=== PATIENT | female | born 2000 | race Hispanic/Latino ===

== ENCOUNTER 2024-07-20 10:35 | Emergency (ER) | payer MEDICAID ==
[~2024-07-20] VITALS: Ht 152.4 cm; Wt 71.2 kg
--- NOTE | 2024-07-20 10:42 | ERN ---
ED Note History of Present Illness Stated Complaint: PELVICA CRAMPING Chief Complaint: Pelvic Pain Time Seen by MD: 10:37 Dictation: PATIENT IS A 23-YEAR-OLD FEMALE COMING IN TODAY WHO IS APPROXIMATELY SIX WEEKS BY HISTORY. SHE IS COMPLAINING OF CRAMPING AND SPOTTING ONSET YESTERDAY. SHE HAS HAD NO CARE, HER DOCTOR WE WILL BE DR. OLMOS OUT OF [place]. , SHE STATES SHE IS TAKING VITAMINS. HER APPOINTMENT WITH HER DOCTOR IS EARLY JULY. Allergies: Coded Allergies: No Known Allergies (Unverified Allergy, Unknown, 07/20/24) Past Medical History PSYCH History: no pertinent psych hx : 1 Para: 0 RN Note Reviewed/Agreed w/PFSH: Yes Review of System Dictation CONSTITUTIONAL: NEGATIVE EXCEPT FOR HPI HEAD/FACE: NEGATIVE EXCEPT FOR HPI EENT: NEGATIVE EXCEPT FOR HPI RESPIRATORY: NEGATIVE EXCEPT FOR HPI GASTROINTESTINAL/ABDOMINAL: NEGATIVE EXCEPT FOR HPI GENITOURINARY: NEGATIVE EXCEPT FOR HPI VAGINAL SPOTTING MUSCULOSKELETAL: NEGATIVE EXCEPT FOR HPI INTEGUMENTARY: NEGATIVE EXCEPT FOR HPI NEUROLOGICAL/PSYCH: NEGATIVE EXCEPT FOR HPI HEMATOLOGIC/LYMPHATIC: NEGATIVE EXCEPT FOR HPI ALL SYSTEMS NEGATIVE, EXCEPT NOTED ABOVE. 13 POINT REVIEW OF SYSTEMS ASSESSED AND ALL NEGATIVE EXCEPT FOR ABOVE. Initial Vital Sign VS Vital Signs Date Time Temp Pulse Resp B/P (MAP) Pulse Ox O2 Delivery O2 Flow Rate FiO2 07/20/24 10:37 98.8 84 20 118/76 Room Air Physical Exam Dictation VITAL SIGNS REVIEWED GENERAL APPEARANCE: ALERT, ORIENTED X 3, MILD ACUTE DISTRESS, WELL DEVELOPED, NOURISHED. HEAD AND FACE: NON-TRAUMATIC. EYES: PERRL, PINK CONJUNCTIVAS, EYELID NO TRAUMA, ANTERIOR CHAMBER WITH ARCUS SENILIS. EARS: PINNAS INTACT AND NO SIGNS OF TRAUMA OR ERYTHEMA EAR CANALS CLEAR AND NO DISCHARGE TM NO ERYTHEMA NOSE: NO DISCHARGE, NO BLEEDING. OROPHARYNX: MOUTH NORMAL, TONGUE PINK, PHARYNX CLEAR,NO ERYTHEMA, TONSILS NO EXUDATES, NO ABSCESSES NOTED, MUCOUS MEMBRANE MOIST NECK: SUPPLE, NON-TENDER, NO THYROMEGALY, NO MASSES, NO JVD, NO BRUITS BREAST:DEFERRED CHEST:NO TENDERNESS, NO CREPITUS, NO PARADOXICAL MOVEMENT, NO RETRACTIONS LUNGS:CLEAR, WELL-VENTILATED, SYMMETRIC, NO RALES, NO WHEEZING, NO RHONCHI, NO STRIDOR, GOOD BREATH SOUNDS BILATERALLY HEART: REGULAR RATE, REGULAR RHYTHM, NO MURMUR, NO GALLOPS VASCULAR: NO PERIPHERAL EDEMA, ABDOMEN: SOFT, POSITIVE BOWEL SOUNDS, NONDISTENDED, NO GUARDING, NONTENDER, NO REBOUND, NO MASSES NO HEPATOMEGALY, NO SPLENOMEGALY, NO PATEL'S SIGN, NO HERNIAS. RECTAL: DEFERRED GENITAL: DEFERRED NEUROLOGICAL: NORMAL SPEECH, MOTOR FUNCTION INTACT, SENSORY FUNCTION INTACT MUSCULOSKELETAL: NECK NONTENDER, FULL RANGE OF MOTION, BACK NONTENDER, FULL RANGE OF MOTION, EXTREMITIES: NONTENDER, FULL RANGE OF MOTION SKIN: COLOR PINK, DRY, NO TURGOR, NO RASH, NO LACERATIONS, NO ABRASIONS, NO CONT USIONS. LYMPHATIC: DEFERRED Results (Laboratory/Radiology) Laboratory/Radiology Laboratory Tests Test 07/20/24 10:50 07/20/24 10:58 White Blood Count 6.5 K/uL (4.8-10.8) Red Blood Count 4.27 MIL/uL (4.00-5.50) Hemoglobin 12.8 g/dL (12.0-16.0) Hematocrit 37.4 % (36-48) Mean Corpuscular Volume 87.6 fL (79-99) Mean Corpuscular Hemoglobin 30.0 pg (27.0-33.0) Mean Corpuscular Hemoglobin Concent 34.2 g/dL (32.0-36.0) Red Cell Distribution Width 12.1 % (11.0-15.5) Platelet Count 236 K/uL (130-400) Mean Platelet Volume 10.4 fL (7.5-10.5) Immature Granulocyte % (Auto) 0.3 % (0-1) Neutrophils (%) (Auto) 65.6 % (40.0-77.0) Lymphocytes (%) (Auto) 25.5 % (21.0-51.0) Monocytes (%) (Auto) 6.0 % (3.0-13.0) Eosinophils (%) (Auto) 2.1 % (0.0-8.0) Basophils (%) (Auto) 0.5 % (0.0-5.0) Neutrophils # (Auto) 4.3 K/uL (1.8-7.7) Lymphocytes # (Auto) 1.7 K/uL (1.0-4.8) Monocytes # (Auto) 0.4 K/uL (0.1-1.0) Eosinophils # (Auto) 0.14 K/uL (0.00-0.70) Basophils # (Auto) 0.03 K/uL (0.00-0.20) Absolute Immature Granulocyte (auto 0.00 K/uL (0-1) Nucleated Red Blood Cells 0.0 % (0.0-0.19) Sodium Level 136 mmol/L (136-145) Potassium Level 3.8 mmol/L (3.5-5.1) Chloride Level 101 mmol/L (101-111) Carbon Dioxide Level 28 mmol/L (21-32) Blood Urea Nitrogen 8 mg/dL (7-18) Creatinine 0.6 mg/dL (0.5-1.0) Glomerular Filtration Rate Calc 130 mL/min (>90) Random Glucose 118 mg/dL (70-105) H Total Calcium 9.2 mg/dL (8.5-10.1) Human Chorionic Gonadotropin, Quant 94225 mIU/mL (0-5) H Urine Color LIGHT-YELLOW (YELLOW) Urine Appearance CLEAR (CLEAR) Urine pH 6.5 (5.0-8.0) Urine Specific [place] 1.018 (1.001-1.031) Urine Protein NEGATIVE mg/dL (NEGATIVE) Urine Glucose (UA) NEGATIVE mg/dL (NEGATIVE) Urine Ketones NEGATIVE mg/dL (NEGATIVE) Urine Occult Blood +- (TRACE) (NEGATIVE) H Urine Nitrate NEGATIVE (NEGATIVE) Urine Bilirubin NEGATIVE mg/dL (NEGATIVE) Urine Urobilinogen 0.2 mg/dL (0.2-1.0) Urine Leukocyte Esterase NEGATIVE Miguel/uL Urine RBC 0-1 /HPF (0-1) Urine WBC 2-5 /HPF (0-1) H Urine Squamous Epithelial Cells RARE /HPF (0-2) Urine Bacteria None /HPF (None Seen) HISTORY: Vaginal spotting COMPARISON: None TECHNIQUE: Obstetrical ultrasound study was performed. FINDINGS: The uterus measures 9.8 x 5.4 x 5.6 centimeter. Right ovary measures 3 x 2.1 x 2.6 centimeter. Left ovary is not well visualized. Flow is seen in the right ovary. There is single intrauterine gestation with estimated gestational age of 7 weeks. heart rate is 129 beats per minute. No fluid is seen in the cul-de-sac. IMPRESSION: 1. There is single intrauterine gestation with estimated gestational age of 7 weeks. heart rate is 129 beats per minute. Labs Reviewed?: Yes ED Course ED Course Orders Procedure Category Date Status Time Cbc With Differential LAB 07/20/24 Complete 10:39 Hcg,Quantitative LAB 07/20/24 Complete 10:39 Us Ob <14 Weeks US 07/20/24 Resulted 10:39 Type And Screen BBK 07/20/24 In Process 10:39 Basic Metabolic Panel LAB 07/20/24 Complete 10:39 Urinalysis Profile LAB 07/20/24 Complete 10:39 *Nursing CPOE 07/20/24 Transmitted Communication: 10:39 Acetaminophen 500mg PHA 07/20/24 Complete Tab (Tylenol 500mg T 11:00 Current Medications Medications (Trade) Dose Ordered Sig/Yasmine Route PRN Reason Start Time Stop Time Status Last Admin Dose Admin Acetaminophen (TYLenol 500MG TAB) 1,000 mg ONCE ONCE PO 07/20/24 11:00 07/20/24 11:01 DC 07/20/24 10:56 Vital Signs Date Time Temp Pulse Resp B/P (MAP) Pulse Ox O2 Delivery O2 Flow Rate FiO2 07/20/24 10:37 98.8 84 20 118/76 Room Air Medical Decision Making MDM MEDICAL DISCHARGE MAKING BASED ON ULTRASOUND AND LABS FOR VAGINAL BLEEDING. ULTRASOUND DEMONSTRATES VIABLE INTRAUTERINE SEVEN WEEKS WITH A HEART RATE 129 PATIENT WAS MADE AWARE SPECULUM EXAM NEGATIVE PATIENT GIVEN INSTRUCTIONS TO TAKE TYLENOL ONLY FOR PAIN AND PELVIC REST UNTIL CLEARED BY HER LEAD SHIPPER DOCTOR Procedure Procedure Dictation: [id number], , PROCEDURE EXPLAINED TO PATIENT AND SHE AGREED TO PROCEED KIMBERLY ARENAS IN ROOM WITH THE EXAM. PATIENT PATIENT IN LITHOTOMY POSITION EXTERNAL EXAM IS NEGATIVE INTERNAL EXAM OS IS CLOSED WITH NO BLOOD IN THE VAULT, NO TISSUE NO LESIONS NO CMT TENDERNESS PATIENT TOLERATED WELL DX & DISP Disposition: Discharge Departure Impression: Primary Impression: Vaginal bleeding before 22 weeks gestation Condition: Stable Additional Instructions: FOLLOW-UP WITH PRIMARY CARE PROVIDER IN 1 TO 2 DAYS. TAKE MEDICATIONS DIRECTED HERE IN THE EMERGENCY ROOM. OKAY TO CONTINUE HOME MEDICATIONS UNLESS OTHERWISE DISCUSSED DURING YOUR VISIT IN THE EMERGENCY ROOM TODAY. RETURN TO YOUR NEAREST EMERGENCY ROOM IF SYMPTOMS WORSEN OR IF THERE IS NO IMPROVEMENT. CALL 911 IF YOU NEED IMMEDIATE ASSISTANCE. TAKE [id number] NEEDED AND IF NO CONTRAINDICATIONS ARE PRESENT. INCREASE ORAL HYDRATION. A WOUND CULTURE OR URINE CULTURE WAS ORDERED HERE IN THE EMERGENCY ROOM DEPARTMENT PLEASE FOLLOW-UP WITH PRIMARY CARE PROVIDER AND ADVISE THEM TO GET REPEAT PORTS FROM OUR FACILITY. IF YOU HAD ANY OUMAR WRAP/SPLINTS THAT WERE APPLIED HERE, PLEASE DO NOT REMOVE THEM UNTIL YOU SEE YOUR PRIMARY CARE OR SPECIALTY. PELVIC REST AND NO SEX OF ANY KIND UNTIL CLEARED BY YOUR LEAD SHIPPER DOCTOR. NO ALCOHOL NO TOBACCO NO [id number] MEDICATIONS EXCEPT FOR TYLENOL UNTIL CLEARED BY YOUR DOCTOR CONTINUE VITAMIN Referrals: TRINITY ZAMARRIPA (PCP) Time of Disposition: 12:21 I have reviewed the case, and I agree with, Diagnosis and Plan DENA GAO NP Jul 20, 2024 10:42
[2024-07-20] MEDS: acetaMINOPHEN 500 MG TABLET PO ONE (10:56)
--- NOTE | 2024-07-20 11:00 | NUR ---
ALMITA REQUEST: PT WAS PROVIDED A LITER OF WATER PLUS HAD A BOTTLE OF WATER W/HER SO THAT SHE MAY FILL HER BLADDER IN PREPARATION FOR HER SONO
[2024-07-20 11:28] LABS: APPEARANCE,URINE CLEAR (CLEAR); BILIRUBIN,URINE NEGATIVE (NEGATIVE); COLOR,URINE LIGHT-YELLOW (YELLOW); GLUCOSE, URINE (UA) NEGATIVE (NEGATIVE); KETONES,URINE NEGATIVE (NEGATIVE); LEUKOCYTE ESTERASE ,URINE NEGATIVE Leu/uL (NEGATIVE); NITRATE,URINE NEGATIVE (NEGATIVE); PH,URINE 6.5 (5.0-8.0); PROTEIN,URINE NEGATIVE (NEGATIVE); UROBILINOGEN,URINE 0.2 mg/dL (0.2-1.0)
[2024-07-20 11:29] LABS: ADD UA MICROSCOPIC YES
[2024-07-20 11:45] LABS: MUCUS,URINE RARE LPF (None Seen); RBC,URINE 0-1 /HPF (0-1); SQUAMOUS EPITHELIAL CELL,UR RARE /HPF (0-2)
[2024-07-20 11:54] LABS: HEMATOCRIT 37.4 % (36-48); MEAN CORPUSCULAR HGB CONC 34.2 g/dL (32.0-36.0); MEAN CORPUSCULAR VOLUME 87.6 fL (79-99); NEUTROPHILS % (AUTO) 65.6 % (40.0-77.0); PLATELET COUNT (AUTO) 236 K/uL (130-400); RED BLOOD CELL COUNT(AUTO) 4.27 MIL/uL (4.00-5.50); RED CELL DISTRIBUTION WIDTH 12.1 % (11.0-15.5); WHITE BLOOD COUNT (AUTO) 6.5 K/uL (4.8-10.8)
[2024-07-20 11:55] LABS: BASOPHILS # (AUTO) 0.03 K/uL (0.00-0.20); BASOPHILS % (AUTO) 0.5 % (0.0-5.0); EOSINOPHILS # (AUTO) 0.14 K/uL (0.00-0.70); EOSINOPHILS % (AUTO) 2.1 % (0.0-8.0); LYMPHOCYTES # (AUTO) 1.7 K/uL (1.0-4.8); LYMPHOCYTES % (AUTO) 25.5 % (21.0-51.0); MONOCYTES # (AUTO) 0.4 K/uL (0.1-1.0); NEUTROPHILS # (AUTO) 4.3 K/uL (1.8-7.7)
[2024-07-20 12:00] LABS: CREATININE 0.6 mg/dL (0.5-1.0); POTASSIUM 3.8 mmol/L (3.5-5.1)
--- NOTE | 2024-07-20 12:01 | HMCIMG ---
US OB <14 WEEKS HISTORY: Vaginal spotting COMPARISON: None TECHNIQUE: Obstetrical ultrasound study was performed. FINDINGS: The uterus measures 9.8 x 5.4 x 5.6 centimeter. Right ovary measures 3 x 2.1 x 2.6 centimeter. Left ovary is not well visualized. Flow is seen in the right ovary. There is single intrauterine gestation with estimated gestational age of 7 weeks. heart rate is 129 beats per minute. No fluid is seen in the cul-de-sac. IMPRESSION: 1. There is single intrauterine gestation with estimated gestational age of 7 weeks. heart rate is 129 beats per minute.
[2024-07-20 12:21] VITALS: BP 115/76; PULSE 80; RESP 18; TEMP 98.7; O2SAT 99
== END 2024-07-20 12:32 | disposition home or self-care (01) ==
LOC: EDH 10:35
DX: O20.9 Hemorrhage in early pregnancy, unspecified (principal); O26.891 Other specified pregnancy related conditions, first trimester; R10.2 Pelvic and perineal pain; Z3A.01 Less than 8 weeks gestation of pregnancy
CPT/HCPCS: 36415; 76801; 80048; 81001; 84702; 85025; 86850; 86900; 86901; 99284

== ENCOUNTER 2024-09-23 05:14 | Emergency (ER) | payer MEDICAID ==
[~2024-09-23] VITALS: Ht 152.4 cm; Wt 72.1 kg
[2024-09-23 05:15] VITALS: BP 129/84; PULSE 112; RESP 20; TEMP 99.8
--- NOTE | 2024-09-23 05:16 | NUR ---
COVID AND FLU, STREP SWABS COLLECTED AND SENT
[2024-09-23 05:33] LABS: RAPID GROUP A STREP negative (NEGATIVE)
[2024-09-23 05:40] LABS: SARS-CoV-2, RNA, NAAT NEGATIVE SARS CoV-2 (NEGATIVE)
[2024-09-23 05:43] LABS: INFLUENZA TYPE A Negative For Type A (NEGATIVE); INFLUENZA TYPE B Negative For Type B (NEGATIVE)
[2024-09-23] MEDS ORDERED: AMOX500C2 PO (05:55)
[2024-09-23] MEDS ORDERED: FLUT16H NS (05:55)
--- NOTE | 2024-09-23 05:56 | ERN ---
General Chief Complaint: Sore Throat Stated Complaint: SORE THROAT, NASAL CONGESTION Time Seen by MD: 05:31 Source: patient History of Present Illness Initial Comments This is a 24-year-old female coming in to be evaluated for one day of cough and sore throat. The patient states that she has been having nasal congestion as well. She does not know if she has had a fever she says she has had chills. Allergies: Coded Allergies: No Known Allergies (Unverified Allergy, Unknown, 07/20/24) Past Medical History Past Medical History: No Pertinent History Past Surgical History: None Female( History) : 1 Para: 0 Aborts: 0 ROS Dictation CONSTITUTIONAL: chills, no fever, no weakness, no diaphoresis, no malaise. HEAD/FACE: No signs of trauma. EENT: No eye pain, no blurred vision, no tearing, no double vision, no ear pain, no ear discharge, no nose pain, nasal congestion, throat pain, no throat swelling, no mouth pain. RESPIRATORY: No cough, no orthopnea, no SOB, no stridor, no wheezing. CARDIOVASCULAR: No chest pain, no edema, no palpitations, no syncope. GASTROINTESTINAL/ABDOMINAL: No abdominal pain, no constipation, no diarrhea, no nausea, no vomiting. GENITOURINARY: No abnormal discharge, no dysuria, no frequent urination, no hematuria. No complaints of pain in the genitals. MUSCULOSKELETAL: No back pain, no gout, no joint pain, no joint swelling, no muscle pain, no muscle stiffness, no neck pain. INTEGUMENTARY: No change in color, no change in hair/nails, no dryness, no lesion, no lumps, no rash. NEUROLOGICAL/PSYCH: No anxiety, not depressed, no emotional problem, no headache, no numbness, no pre-existing deficit, no history of seizures, no tremors, no weakness. HEMATOLOGIC/LYMPHATIC: Not anemic, no history of blood clots, no apparent bleeding, no bruising, glands not swollen. All Systems Negative, Except as Noted. Physical Exam Physical Exam Dictation VITAL SIGNS: Reviewed. GENERAL APPEARANCE: Alert, oriented x3, no acute distress, obese. HEAD AND FACE: Non-traumatic. EYES: PERRL, pink conjunctivas, eyelid no trauma, anterior chamber clear. EARS: Pinnas intact and no signs of trauma or erythema. Ear canals clear and no discharge. TMs erythema. NOSE: No discharge, no bleeding. OROPHARYNX: Mouth normal, teeth no caries, tongue pink. Pharynx erythema. Tonsils no exudates, no abscesses noted. Mucous membrane moist. NECK: Supple, non-tender, no thyromegaly, no masses, no JVD, no bruits. BREAST: Deferred. CHEST: No tenderness, no crepitus, no paradoxical movement, no retractions. LUNGS: Clear, well-ventilated, symmetric, no rales, no wheezing, no rhonchi, no stridor, good breath sounds bilaterally. HEART: Regular rate, regular rhythm, no murmur, no gallops. VASCULAR: No peripheral edema. ABDOMEN: Soft, positive bowel sounds, nondistended, no guarding, nontender, no rebound, no masses no hepatomegaly, no splenomegaly, no Cabrales's sign, no hernias. RECTAL: Deferred. GENITAL: Deferred. NEUROLOGICAL: Normal speech, gross motor function intact, gross sensory function intact. MUSCULOSKELETAL: Neck nontender, full range of motion, back nontender, full range of motion. EXTREMITIES: Nontender, full range of motion. SKIN: Color pink, dry, no turgor, no rash, no lacerations, no abrasions, no contusions. LYMPHATICS: Deferred. Results Laboratory and Microbiology Lab and Micro Result Laboratory Tests Test 09/23/24 05:16 Influenza Type A Antigen Negative For Type A Influenza Type B Antigen Negative For Type B SARS-CoV-2, RNA, NAAT NEGATIVE SARS CoV-2 Group A Streptococcus Rapid negative (NEGATIVE) Labs Reviewed?: Yes MDM MDM: Differential diagnosis: URI, sinusitis, strep pharyngitis Patient is a 24-year-old female coming in to be evaluated for URI symptoms. URI symptoms include sore throat nasal congestion. On physical exam oropharyngeal erythema is present swabs are all negative for COVID flu and strep. Based on the physical findings patient will be discharged with a diagnosis of strep pharyngitis antibiotics will be provided. ED Course Orders Procedure Category Date Status Time Covid Rna Naat LAB 09/23/24 Complete 05:16 Influenza Type A & B, LAB 09/23/24 Complete Rapid 05:16 Rapid (Group A Strep) LAB 09/23/24 Complete 05:16 Vital Signs Date Time Temp Pulse Resp B/P (MAP) Pulse Ox O2 Delivery O2 Flow Rate FiO2 09/23/24 05:15 99.9 112 20 129/84 99 Room Air DX & DISP Disposition: Discharge Departure Impression: Primary Impression: Strep pharyngitis Condition: Stable Scripts Fluticasone Propionate (Flonase Nasal [place]) 50 Mcg/Actuation [place] 2 SPRAY NS DAILY, #16 GM 0 Refills Prov: SAVANNAH FITCH MD 09/23/24 Amoxicillin (Amoxicillin) 500 Mg Capsule 1 CAP PO TID for 7 Days, #21 CAP 0 Refills Prov: SAVANNAH FITCH MD 09/23/24 Additional Instructions: FOLLOW-UP WITH PRIMARY CARE PROVIDER IN 1 TO 2 DAYS. TAKE MEDICATIONS DIRECTED HERE IN THE EMERGENCY ROOM. OKAY TO CONTINUE HOME MEDICATIONS UNLESS OTHERWISE DISCUSSED DURING YOUR VISIT IN THE EMERGENCY ROOM TODAY. RETURN TO YOUR NEAREST EMERGENCY ROOM IF SYMPTOMS WORSEN OR IF THERE IS NO IMPROVEMENT. CALL 911 IF YOU NEED IMMEDIATE ASSISTANCE. TAKE TYLENOL [id number] NEEDED AND IF NO CONTRAINDICATIONS ARE PRESENT. INCREASE ORAL HYDRATION. A WOUND CULTURE OR URINE CULTURE WAS ORDERED HERE IN THE EMERGENCY ROOM DEPARTMENT PLEASE FOLLOW-UP WITH PRIMARY CARE PROVIDER AND ADVISE THEM TO GET REPEAT PORTS FROM OUR FACILITY. IF YOU HAD ANY OUMAR WRAP/SPLINTS THAT WERE APPLIED HERE, PLEASE DO NOT REMOVE THEM UNTIL YOU SEE YOUR PRIMARY CARE OR SPECIALTY. Referrals: Referrals: ALONDRA CURTIS (PCP) Time of Disposition: 05:54 SAVANNAH FITCH MD Sep 23, 2024 05:56
== END 2024-09-23 06:13 | disposition home or self-care (01) ==
LOC: EDH 05:14
DX: J02.0 Streptococcal pharyngitis (principal); Z20.822 Contact with and (suspected) exposure to COVID-19
CPT/HCPCS: 87635; 87804; 87880; 99284

== ENCOUNTER 2024-09-23 20:55 | Emergency (ER) | payer MEDICAID ==
[~2024-09-23] VITALS: Ht 152.4 cm; Wt 72.1 kg
[~2024-09-23 20:55] MED LIST: AMOX500C2 PO; FLUT16H NS
[2024-09-23 20:57] VITALS: BP 119/73; PULSE 127; RESP 20; TEMP 99.3
--- NOTE | 2024-09-23 21:38 | ERN ---
General Chief Complaint: Fever Stated Complaint: FEVER Time Seen by MD: 20:59 Source: patient History of Present Illness Initial Comments Patient is a 23-year-old female seen earlier today due to URI symptoms. Patient was diagnosed with strep pharyngitis. Patient was 16 weeks and states she was wanting to make sure that the medication was appropriate to take while she is . Patient was prescribed amoxicillin in his on Tylenol for fever control. No abdominal pain or other symptoms. Allergies: Coded Allergies: No Known Allergies (Unverified Allergy, Unknown, 07/20/24) Home Meds Active Scripts Fluticasone Propionate (Flonase Nasal [place]) 50 Mcg/Actuation [place], 2 SPRAY NS DAILY, #16 GM 0 Refills Prov:SAVANNAH FITCH MD 09/23/24 Amoxicillin (Amoxicillin) 500 Mg Capsule, 1 CAP PO TID for 7 Days, #21 CAP 0 Refills Prov:SAVANNAH FITCH MD 09/23/24 Past Medical History Past Medical History: No Pertinent History Past Surgical History: None Female( History) : 1 Para: 0 Aborts: 0 ROS Dictation CONSTITUTIONAL: No chills, no fever, no weakness, no diaphoresis, no malaise. HEAD/FACE: No signs of trauma. EENT: No eye pain, no blurred vision, no tearing, no double vision, no ear pain, no ear discharge, no nose pain, no nasal congestion, no throat pain, no throat swelling, no mouth pain. RESPIRATORY: No cough, no orthopnea, no SOB, no stridor, no wheezing. CARDIOVASCULAR: No chest pain, no edema, no palpitations, no syncope. GASTROINTESTINAL/ABDOMINAL: No abdominal pain, no constipation, no diarrhea, no nausea, no vomiting. GENITOURINARY: No abnormal discharge, no dysuria, no frequent urination, no hematuria. No complaints of pain in the genitals. MUSCULOSKELETAL: No back pain, no gout, no joint pain, no joint swelling, no muscle pain, no muscle stiffness, no neck pain. INTEGUMENTARY: No change in color, no change in hair/nails, no dryness, no lesion, no lumps, no rash. NEUROLOGICAL/PSYCH: No anxiety, not depressed, no emotional problem, no headache, no numbness, no pre-existing deficit, no history of seizures, no tremors, no weakness. HEMATOLOGIC/LYMPHATIC: Not anemic, no history of blood clots, no apparent bleeding, no bruising, glands not swollen. All Systems Negative, Except as Noted. Physical Exam Physical Exam Dictation VITAL SIGNS: Reviewed. GENERAL APPEARANCE: Alert, oriented x3, no acute distress, obese. HEAD AND FACE: Non-traumatic. EYES: PERRL, pink conjunctivas, eyelid no trauma, anterior chamber clear. EARS: Pinnas intact and no signs of trauma or erythema. Ear canals clear and no discharge. TMs no erythema. NOSE: No discharge, no bleeding. OROPHARYNX: Mouth normal, teeth no caries, tongue pink. Pharynx clear, no erythema. Tonsils no exudates, no abscesses noted. Mucous membrane moist. NECK: Supple, non-tender, no thyromegaly, no masses, no JVD, no bruits. BREAST: Deferred. CHEST: No tenderness, no crepitus, no paradoxical movement, no retractions. LUNGS: Clear, well-ventilated, symmetric, no rales, no wheezing, no rhonchi, no stridor, good breath sounds bilaterally. HEART: Regular rate, regular rhythm, no murmur, no gallops. VASCULAR: No peripheral edema. ABDOMEN: Soft, positive bowel sounds, nondistended, no guarding, nontender, no rebound, no masses no hepatomegaly, no splenomegaly, no Cabrales's sign, no hernias. RECTAL: Deferred. GENITAL: Deferred. NEUROLOGICAL: Normal speech, gross motor function intact, gross sensory function intact. MUSCULOSKELETAL: Neck nontender, full range of motion, back nontender, full range of motion. EXTREMITIES: Nontender, full range of motion. SKIN: Color pink, dry, no turgor, no rash, no lacerations, no abrasions, no contusions. LYMPHATICS: Deferred. Results Laboratory and Microbiology Labs Reviewed?: Yes MDM MDM: Differential diagnosis: Strep pharyngitis, wellness exam, Patient is a 23-year-old female coming in to be evaluated. She states that she was seen earlier today here at the same ER was prescribed amoxicillin for strep pharyngitis. States he was she was concerned that the medication would not be appropriate due to her . Patient was prescribed amoxicillin for a strep pharyngitis. I advised her that amoxicillin in his safe to take during she does not have any other complaint. Was notified by nursing staff the patient eloped without notifying anybody ED Course Vital Signs Date Time Temp Pulse Resp B/P (MAP) Pulse Ox O2 Delivery O2 Flow Rate FiO2 09/23/24 20:57 99.3 127 20 119/73 98 Room Air DX & DISP Disposition: AMA Departure Impression: Primary Impression: Wellness examination Condition: Against Medical Advice Additional Instructions: Was notified by nursing staff the patient eloped from ER. Referrals: ALONDRA CURTIS (PCP) Time of Disposition: 22:31 SAAVNNAH FITCH MD Sep 23, 2024 21:38
--- NOTE | 2024-09-23 22:25 | NUR ---
CALLED BY DR FITCH , NO ANSWER
--- NOTE | 2024-09-23 22:27 | NUR ---
PT CALLED, NO ANSWER.
--- NOTE | 2024-09-23 22:34 | NUR ---
PT CALLED, NO ANSWER
== END 2024-09-23 22:44 | disposition left against medical advice (07) ==
LOC: EDH 20:55
DX: O99.511 Diseases of the respiratory system complicating pregnancy, first trimester (principal); J02.0 Streptococcal pharyngitis; Z3A.16 16 weeks gestation of pregnancy
CPT/HCPCS: 99281

== ENCOUNTER 2024-09-25 01:03 | Emergency (ER) | payer MEDICAID ==
[~2024-09-25] VITALS: Ht 152.4 cm; Wt 71.7 kg
[2024-09-25 01:08] VITALS: BP 124/74; PULSE 124; RESP 20; TEMP 99.5
[2024-09-25] MEDS ORDERED: 0.9%NACL 1000ML 1,000 ML IV ONE (01:30)
[2024-09-25 01:37] LABS: BASOPHILS # (AUTO) 0.02 K/uL (0.00-0.20); BASOPHILS % (AUTO) 0.3 % (0.0-5.0); EOSINOPHILS # (AUTO) 0.01 K/uL (0.00-0.70); EOSINOPHILS % (AUTO) 0.1 % (0.0-8.0); HEMATOCRIT 29.8 % (36-48); IMMATURE GRANULOCYTE ABSOLUTE 0.03 K/uL (0-1); LYMPHOCYTES # (AUTO) 0.8 K/uL (1.0-4.8); LYMPHOCYTES % (AUTO) 11.6 % (21.0-51.0); MEAN CORPUSCULAR HEMOGLOBIN 29.4 pg (27.0-33.0); MEAN CORPUSCULAR HGB CONC 34.6 g/dL (32.0-36.0); MEAN CORPUSCULAR VOLUME 85.1 fL (79-99); MONOCYTES # (AUTO) 0.6 K/uL (0.1-1.0); MONOCYTES % (AUTO) 8.3 % (3.0-13.0); NEUTROPHILS # (AUTO) 5.3 K/uL (1.8-7.7); NEUTROPHILS % (AUTO) 79.3 % (40.0-77.0); PLATELET COUNT (AUTO) 203 K/uL (130-400); RED CELL DISTRIBUTION WIDTH 12.4 % (11.0-15.5); WHITE BLOOD COUNT (AUTO) 6.7 K/uL (4.8-10.8)
[2024-09-25 01:43] LABS: CREATININE 0.5 mg/dL (0.5-1.0); POTASSIUM 3.1 mmol/L (3.5-5.1)
--- NOTE | 2024-09-25 01:57 | ERN ---
General Chief Complaint: Cough Stated Complaint: C/O FEVER, CONGESTION, COUGH, SORE THROAT, X 4 DAY Time Seen by MD: 01:10 Source: patient History of Present Illness Initial Comments Patient is a 23-year-old female coming in to be evaluated again after stating she was diagnosed with strep pharyngitis but she believes her temperature is still high. She states that she has been feeling weak in his here for further evaluation. She has taken her antibiotics once and states he is still not getting better. Allergies: Coded Allergies: No Known Allergies (Unverified Allergy, Unknown, 07/20/24) Home Meds Active Scripts Fluticasone Propionate (Flonase Nasal Fieldon) 50 Mcg/Actuation Fieldon, 2 SPRAY NS DAILY, #16 GM 0 Refills Prov:SAVANNAH FITCH MD 09/23/24 Amoxicillin (Amoxicillin) 500 Mg Capsule, 1 CAP PO TID for 7 Days, #21 CAP 0 Refills Prov:SAVANNAH FITCH MD 09/23/24 Past Medical History Past Medical History: No Pertinent History Past Surgical History: None Female( History) LMP: Jun 03, 2024 : 1 Para: 0 Aborts: 0 ROS Dictation CONSTITUTIONAL: No chills, no fever, no weakness, no diaphoresis, no malaise. HEAD/FACE: No signs of trauma. EENT: No eye pain, no blurred vision, no tearing, no double vision, no ear pain, no ear discharge, no nose pain, no nasal congestion, no throat pain, no throat swelling, no mouth pain. RESPIRATORY: No cough, no orthopnea, no SOB, no stridor, no wheezing. CARDIOVASCULAR: No chest pain, no edema, no palpitations, no syncope. GASTROINTESTINAL/ABDOMINAL: No abdominal pain, no constipation, no diarrhea, no nausea, no vomiting. GENITOURINARY: No abnormal discharge, no dysuria, no frequent urination, no hematuria. No complaints of pain in the genitals. MUSCULOSKELETAL: No back pain, no gout, no joint pain, no joint swelling, no muscle pain, no muscle stiffness, no neck pain. INTEGUMENTARY: No change in color, no change in hair/nails, no dryness, no lesion, no lumps, no rash. NEUROLOGICAL/PSYCH: No anxiety, not depressed, no emotional problem, no headache, no numbness, no pre-existing deficit, no history of seizures, no tremors, no weakness. HEMATOLOGIC/LYMPHATIC: Not anemic, no history of blood clots, no apparent bleeding, no bruising, glands not swollen. All Systems Negative, Except as Noted. Physical Exam Physical Exam Dictation VITAL SIGNS: Reviewed. GENERAL APPEARANCE: Alert, oriented x3, no acute distress, obese. HEAD AND FACE: Non-traumatic. EYES: PERRL, pink conjunctivas, eyelid no trauma, anterior chamber clear. EARS: Pinnas intact and no signs of trauma or erythema. Ear canals clear and no discharge. TMs no erythema. NOSE: No discharge, no bleeding. OROPHARYNX: Mouth normal, teeth no caries, tongue pink. Pharynx clear, no erythema. Tonsils no exudates, no abscesses noted. Mucous membrane moist. NECK: Supple, non-tender, no thyromegaly, no masses, no JVD, no bruits. BREAST: Deferred. CHEST: No tenderness, no crepitus, no paradoxical movement, no retractions. LUNGS: Clear, well-ventilated, symmetric, no rales, no wheezing, no rhonchi, no stridor, good breath sounds bilaterally. HEART: Regular rate, regular rhythm, no murmur, no gallops. VASCULAR: No peripheral edema. ABDOMEN: Soft, positive bowel sounds, nondistended, no guarding, nontender, no rebound, no masses no hepatomegaly, no splenomegaly, no Cabrales's sign, no hernias. RECTAL: Deferred. GENITAL: Deferred. NEUROLOGICAL: Normal speech, gross motor function intact, gross sensory function intact. MUSCULOSKELETAL: Neck nontender, full range of motion, back nontender, full range of motion. EXTREMITIES: Nontender, full range of motion. SKIN: Color pink, dry, no turgor, no rash, no lacerations, no abrasions, no contusions. LYMPHATICS: Deferred. Results Laboratory and Microbiology Lab and Micro Result Laboratory Tests Test 09/25/24 01:29 White Blood Count 6.7 K/uL (4.8-10.8) Red Blood Count 3.50 MIL/uL (4.00-5.50) L Hemoglobin 10.3 g/dL (12.0-16.0) L Hematocrit 29.8 % (36-48) L Mean Corpuscular Volume 85.1 fL (79-99) Mean Corpuscular Hemoglobin 29.4 pg (27.0-33.0) Mean Corpuscular Hemoglobin Concent 34.6 g/dL (32.0-36.0) Red Cell Distribution Width 12.4 % (11.0-15.5) Platelet Count 203 K/uL (130-400) Mean Platelet Volume 10.2 fL (7.5-10.5) Immature Granulocyte % (Auto) 0.4 % (0-1) Neutrophils (%) (Auto) 79.3 % (40.0-77.0) H Lymphocytes (%) (Auto) 11.6 % (21.0-51.0) L Monocytes (%) (Auto) 8.3 % (3.0-13.0) Eosinophils (%) (Auto) 0.1 % (0.0-8.0) Basophils (%) (Auto) 0.3 % (0.0-5.0) Neutrophils # (Auto) 5.3 K/uL (1.8-7.7) Lymphocytes # (Auto) 0.8 K/uL (1.0-4.8) L Monocytes # (Auto) 0.6 K/uL (0.1-1.0) Eosinophils # (Auto) 0.01 K/uL (0.00-0.70) Basophils # (Auto) 0.02 K/uL (0.00-0.20) Absolute Immature Granulocyte (auto 0.03 K/uL (0-1) Nucleated Red Blood Cells 0.0 % (0.0-0.19) Sodium Level 132 mmol/L (136-145) L Potassium Level 3.1 mmol/L (3.5-5.1) L Chloride Level 101 mmol/L (101-111) Carbon Dioxide Level 22 mmol/L (21-32) Blood Urea Nitrogen 3 mg/dL (7-18) L Creatinine 0.5 mg/dL (0.5-1.0) Glomerular Filtration Rate Calc 136 mL/min (>90) Random Glucose 116 mg/dL (70-105) H Total Calcium 8.3 mg/dL (8.5-10.1) L MDM MDM: Differential diagnosis: Strep pharyngitis, dehydration, hypokalemia Patient is a 23-year-old female coming in for further evaluation. Patient stat es that she was diagnosed with strep two days ago and has been having discomfort since. She has taken her antibiotics once but states he feels as if she is dehydrated. Patient was hydrated with IV fluids potassium was given since it was mildly decreased. Patient will be discharged in stable condition with a diagnosis of dehydration. ED Course Orders Procedure Category Date Status Time Cbc With Differential LAB 09/25/24 Complete 01:20 Basic Metabolic Panel LAB 09/25/24 Complete 01:20 0.9%Nacl 1000ml (Ns PHA 09/25/24 Complete 1000ml) 01:30 Potassium Bicarb/Cit PHA 09/25/24 In Process Ac 25meq (K-Lyte Ta 02:00 Ceftriaxone 1g Vial PHA 09/25/24 In Process (Rocephine 1g Inj) 02:00 Current Medications Medications (Trade) Dose Ordered Sig/Yasmine Route PRN Reason Start Time Stop Time Status Last Admin Dose Admin Ceftriaxone Sodium (ROCEphine 1G INJ) 1 gm ONCE ONCE IVPB 09/25/24 02:00 09/25/24 02:01 Potassium Bicarbonate (K-Lyte Tablet Eff 25 Meq Tablet.eff) 25 meq ONCE ONCE PO 09/25/24 02:00 09/25/24 02:01 Sodium Chloride 1,000 ml @ 0 mls/hr ONCE ONCE IV 09/25/24 01:30 09/25/24 01:31 DC Vital Signs Date Time Temp Pulse Resp B/P (MAP) Pulse Ox O2 Delivery O2 Flow Rate FiO2 09/25/24 01:08 99.5 124 20 124/74 98 Room Air DX & DISP Disposition: Discharge Departure Impression: Primary Impression: Strep pharyngitis Additional Impressions: Dehydration, Hypokalemia Condition: Stable Additional Instructions: FOLLOW-UP WITH PRIMARY CARE PROVIDER IN 1 TO 2 DAYS. TAKE MEDICATIONS DIRECTED HERE IN THE EMERGENCY ROOM. OKAY TO CONTINUE HOME MEDICATIONS UNLESS OTHERWISE DISCUSSED DURING YOUR VISIT IN THE EMERGENCY ROOM TODAY. RETURN TO YOUR NEAREST EMERGENCY ROOM IF SYMPTOMS WORSEN OR IF THERE IS NO IMPROVEMENT. CALL 911 IF YOU NEED IMMEDIATE ASSISTANCE. TAKE TYLENOL [id number] NEEDED AND IF NO CONTRAINDICATIONS ARE PRESENT. INCREASE ORAL HYDRATION. A WOUND CULTURE OR URINE CULTURE WAS ORDERED HERE IN THE EMERGENCY ROOM DEPARTMENT PLEASE FOLLOW-UP WITH PRIMARY CARE PROVIDER AND ADVISE THEM TO GET REPEAT PORTS FROM OUR FACILITY. IF YOU HAD ANY OUMAR WRAP/SPLINTS THAT WERE APPLIED HERE, PLEASE DO NOT REMOVE THEM UNTIL YOU SEE YOUR PRIMARY CARE OR SPECIALTY. Referrals: Referrals: ALONDRA CURTIS (PCP) Time of Disposition: 01:56 SAVANNAH FITCH MD Sep 25, 2024 01:57
[2024-09-25] MEDS ORDERED: PoTASSium BIcarbonate/CIT AC 25 MEQ TABLET.EFF PO ONE (02:00)
[2024-09-25] MEDS ORDERED: cefTRIAXone 1G VIAL IVPB ONE (02:00)
--- NOTE | 2024-09-25 02:55 | NUR ---
CALLED FOR PT IN LOBBY , NO RESPONSE. PT NOT FOUND IN LOBBY.
--- NOTE | 2024-09-25 03:10 | NUR ---
CALLED FOR PT IN LOBBY, PT NOT FOUND IN LOBBY
--- NOTE | 2024-09-25 03:11 | NUR ---
PT LEFT W/O WAITING FOR MEDICATIONS; LEFT W/O D/C PAPERWORK
== END 2024-09-25 03:12 | disposition home or self-care (01) ==
LOC: EDH 01:03
DX: J02.0 Streptococcal pharyngitis (principal); E86.0 Dehydration; E87.6 Hypokalemia; Z79.899 Other long term (current) drug therapy
CPT/HCPCS: 36415; 80048; 85025; 99283